=== PATIENT | male | born 1930 | race Caucasian/White ===

== ENCOUNTER 2016-10-23 08:53 | Day surgery (SDC) | payer MEDICARE, BC ==
[~2016-10-23] VITALS: Ht 182.9 cm; Wt 104.5 kg
[2016-10-23] VITALS (426 sets, daily range): BP systolic 134–170; BP diastolic 72–89; PULSE 56–72; TEMP 97.2–98.3; O2SAT 83–98
[~2016-10-23 08:53] MED LIST: ALAVERT10 M1 PO; AMBIEN 5MG TABLE5 MG PO; AVAPRO75 MG PO; CEPHALEXIN500 M1 PO; CIPRO 500MG TA500 MG PO; EFFEXOR 75M75 MG/TAB PO; FISH OIL 1000MG1 CAP PO; FLONASE NASAL S16 GM NS; HCTZ 25MG TAB25 MG PO; MICROZIDE12.5 MG PO; MIRALAX PA17 GM/Dose PO; MULTI VITAMINS1 TAB PO; MULTIVITAMIN FO1 CAP PO; PRIL40 PO; PRILOSEC 20MG20 MG PO; TEARS NATURALE15 M1 OP; TEARS-ARTIFICIA15 ML OU; TYLENOL EXTRA500 M1 PO; VERAPAMIL120 MG/TA1 PO; XALATAN EYE DROPS OU
[2016-10-23] MEDS ORDERED: LOPRESSOR 225 MG/TAB PO (09:18)
[2016-10-23] MEDS ORDERED: LIPITOR 80MG80 MG PO (09:19)
[2016-10-23] MEDS ORDERED: IMDUR 60MG60 MG/TAB PO (09:19)
[2016-10-23] MEDS ORDERED: PLAVIX 75MG TAB75 MG PO (09:20)
[2016-10-23] MEDS ORDERED: ASPIRIN 32325 MG/TAB PO (09:21)
[2016-10-23] MEDS ORDERED: CLARITIN 1010 MG/TAB PO (09:21)
[2016-10-23] MEDS ORDERED: NITROSTAT0.4 MG/TAB SL (09:21)
[2016-10-23] MEDS ORDERED: GLUCOSAMINE & C1 CAP PO (09:22)
[2016-10-23 09:47] LABS: HEMOGLOBIN 12.5 g/dl (13.5-18.0); MEAN CELL VOLUME 94 fl (80.0-100.0); MEAN CORPUSCULAR HEMOGLOBIN 32 pg (27.0-31.0); MEAN CORPUSCULAR HGB CONC 34 g/dl (33.0-37.0); MEAN PLATELET VOLUME 9.5 fl (7.4-10.4); PLATELET COUNT 189 K/mm3 (130-400); RED BLOOD COUNT 3.94 M/mm3 (4.20-5.60); REDCELL DISTRIBUTION WIDTH-CV 12.6 % (11.5-14.5); WHITE BLOOD COUNT 6.4 K/mm3 (4.8-10.8)
[2016-10-23 09:52] LABS: INR 1.2 (0.8-3.0); PROTHROMBIN TIME 13.6 SECONDS (9.7-12.8)
[2016-10-23 10:14] LABS: CALCIUM 9.5 mg/dL (8.4-10.2); CREATININE, serum 1.07 mg/dL (0.66-1.25); POTASSIUM 4.1 mmol/L (3.4-5.0)
[2016-10-24] VITALS (233 sets, daily range): BP systolic 160–161; BP diastolic 87–88; PULSE 62–83; TEMP 97.5–98; O2SAT 89–97
[2016-10-24 05:59] LABS: CREATININE, serum 1.02 mg/dL (0.66-1.25)
[2016-10-24 06:13] LABS: BASO % 0.6 % (0.0-2.0); EOS # 0.2 (0.0-0.7); EOS % 3.5 % (0-4.0); GRAN # 3.9 (1.4-6.5); GRAN % 59.5 % (42.2-75.2); HEMOGLOBIN 12.2 g/dl (13.5-18.0); LYMPH # 1.8 (1.2-3.4); LYMPH % 27.4 % (20.0-51.0); MEAN CELL VOLUME 95 fl (80.0-100.0); MEAN CORPUSCULAR HEMOGLOBIN 32 pg (27.0-31.0); MEAN CORPUSCULAR HGB CONC 34 g/dl (33.0-37.0); MEAN PLATELET VOLUME 9.4 fl (7.4-10.4); MONO # 0.6 (0.1-0.6); MONO % 8.7 % (1.7-9.3); PLATELET COUNT 186 K/mm3 (130-400); RED BLOOD COUNT 3.82 M/mm3 (4.20-5.60); REDCELL DISTRIBUTION WIDTH-CV 12.7 % (11.5-14.5); WHITE BLOOD COUNT 6.6 K/mm3 (4.8-10.8)
[2016-10-24 06:24] LABS: HEMATOCRIT 36.3 % (42.0-52.0)
== END 2016-10-24 10:00 | disposition home or self-care (01) ==
LOC: COL.RAD 08:53 → IMCU 13:07 → COL.RAD 10-24 10:00
PROVIDERS: Internal Medicine Interventional Cardiology
DX: I25.119 Atherosclerotic heart disease of native coronary artery with unspecified angina pectoris (principal); I48.0 Paroxysmal atrial fibrillation; Z79.01 Long term (current) use of anticoagulants; R60.9 Edema, unspecified; I49.3 Ventricular premature depolarization
CPT/HCPCS: OP; C1725; C1760; C1769; C1874; C9600; C9601; J0583; J2250; J3010; Q9967

== ENCOUNTER → 2016-11-06 | Outpatient (CLI) | payer MEDICARE, BC ==
[~2016-11-06] MED LIST changes: +ASPIRIN 32325 MG/TAB PO; +CLARITIN 1010 MG/TAB PO; +GLUCOSAMINE & C1 CAP PO; +IMDUR 60MG60 MG/TAB PO; +LIPITOR 80MG80 MG PO; +LOPRESSOR 225 MG/TAB PO; +NITROSTAT0.4 MG/TAB SL; +PLAVIX 75MG TAB75 MG PO; +TYLENOL W/COD1 UDTAB PO
== END ==
LOC: COL.RAD 10:54
DX: I25.10 Atherosclerotic heart disease of native coronary artery without angina pectoris (principal); Z95.5 Presence of coronary angioplasty implant and graft; I70.0 Atherosclerosis of aorta; K44.9 Diaphragmatic hernia without obstruction or gangrene; N28.1 Cyst of kidney, acquired
CPT/HCPCS: Q9967

== ENCOUNTER 2016-12-02 10:39 | Emergency (ER) | payer MEDICARE, BC ==
[~2016-12-02] VITALS: Ht 182.9 cm; Wt 102.7 kg
[~2016-12-02 10:39] MED LIST changes: -TYLENOL W/COD1 UDTAB PO
[2016-12-02 10:42] VITALS: TEMP 98
[2016-12-02 11:32] VITALS: BP 144/78
[2016-12-02 12:12] LABS: BASO % 0.7 % (0.0-2.0); EOS # 0.2 (0.0-0.7); EOS % 2.8 % (0-4.0); GRAN # 3.6 (1.4-6.5); GRAN % 67.3 % (42.2-75.2); LYMPH # 1.2 (1.2-3.4); LYMPH % 21.7 % (20.0-51.0); MEAN CELL VOLUME 94 fl (80.0-100.0); MEAN CORPUSCULAR HGB CONC 34 g/dl (33.0-37.0); MEAN PLATELET VOLUME 9.4 fl (7.4-10.4); MONO # 0.4 (0.1-0.6); MONO % 7.3 % (1.7-9.3); PLATELET COUNT 181 K/mm3 (130-400); RED BLOOD COUNT 3.74 M/mm3 (4.20-5.60); REDCELL DISTRIBUTION WIDTH-CV 13.2 % (11.5-14.5); WHITE BLOOD COUNT 5.3 K/mm3 (4.8-10.8)
[2016-12-02 12:16] LABS: ADJUSTED CALCIUM 9.3 mg/dL (8.4-10.2); ALBUMIN 3.8 gm/dL (3.5-5.0); BILIRUBIN,TOTAL 0.9 mg/dL (0.0-1.0); CALCIUM 9.1 mg/dL (8.4-10.2); CREATININE, serum 1.04 mg/dL (0.66-1.25); TOTAL PROTEIN 6.3 gm/dL (6.4-8.2)
[2016-12-02 12:17] LABS: HEMATOCRIT 35.2 % (42.0-52.0); HEMOGLOBIN 11.8 g/dl (13.5-18.0); MEAN CORPUSCULAR HEMOGLOBIN 32 pg (27.0-31.0)
[2016-12-02 12:29] LABS: INR 1.2 (0.8-3.0); PROTHROMBIN TIME 13.2 SECONDS (9.7-12.8)
[2016-12-02 12:31] LABS: PARTIAL THROMBOPLASTIN TIME 32.7 SECONDS (26.0-37.0)
[2016-12-02] MEDS ORDERED: TYLENOL W/COD1 UDTAB PO (13:49)
[2016-12-02] MEDS ORDERED: CEPHALEXIN500 M1 PO (13:49)
[2016-12-02 14:30] VITALS: PULSE 60
== END 2016-12-02 14:30 | disposition home or self-care (01) ==
LOC: COL.ER 10:39
PROVIDERS: Emergency Medicine
DX: S61.412A Laceration without foreign body of left hand, initial encounter (principal); W22.03XA Walked into furniture, initial encounter
CPT/HCPCS: J0690; J7030

== ENCOUNTER 2017-02-12 15:36 | Outpatient (RCR) | payer MEDICARE, BC ==
[~2017-02-12 15:36] MED LIST changes: +TYLENOL W/COD1 UDTAB PO
== END 2017-02-21 | disposition home or self-care (01) ==
LOC: COL.CR
DX: Z48.812 Encounter for surgical aftercare following surgery on the circulatory system (principal); Z95.5 Presence of coronary angioplasty implant and graft; I25.10 Atherosclerotic heart disease of native coronary artery without angina pectoris

== ENCOUNTER 2017-03-08 13:25 | Outpatient (RCR) | payer MEDICARE, BC | END 2017-03-17 11:53 | disposition home or self-care (01) | LOC: COL.CR 13:25 | DX: Z48.812 Encounter for surgical aftercare following surgery on the circulatory system (principal); Z95.5 Presence of coronary angioplasty implant and graft; I25.10 Atherosclerotic heart disease of native coronary artery without angina pectoris ==

== ENCOUNTER 2017-10-28 12:10 | Outpatient (CLI) | payer MEDICARE, BC ==
[~2017-10-28] VITALS: Ht 180.3 cm; Wt 101.8 kg
[2017-10-28 12:45] LABS: POTASSIUM 4.8 mmol/L (3.4-5.0)
[2017-10-28 12:48] LABS: INR 1.2 (0.8-3.0); PROTHROMBIN TIME 13.6 SECONDS (9.7-12.8)
[2017-10-28 13:20] LABS: THYROID STIMULATING HORMONE 2.67 uIU/mL (0.465-4.680)
== END 2017-10-28 15:30 | disposition home or self-care (01) ==
LOC: COL.RAD 12:10
PROVIDERS: Internal Medicine Interventional Cardiology
DX: I08.0 Rheumatic disorders of both mitral and aortic valves (principal); I48.0 Paroxysmal atrial fibrillation
CPT/HCPCS: J0330; J2704; J7030

== ENCOUNTER 2017-12-08 17:08 | Emergency (ER) | payer MEDICARE, BC ==
[~2017-12-08] VITALS: Ht 180.3 cm; Wt 104.5 kg
[2017-12-08 17:12] VITALS: TEMP 97.7
[2017-12-08] MEDS ORDERED: BYSTOLIC2.5 MG PO (17:44)
[2017-12-08 17:49] LABS: BASO # 0.1 (0.0-0.2); BASO % 0.7 % (0.0-2.0); EOS # 0.1 (0.0-0.7); EOS % 1.3 % (0-4.0); GRAN # 4.8 (1.4-6.5); GRAN % 67.2 % (42.2-75.2); HEMOGLOBIN 12.1 g/dl (13.5-18.0); LYMPH # 1.5 (1.2-3.4); MEAN CELL VOLUME 95 fl (80.0-100.0); MEAN CORPUSCULAR HEMOGLOBIN 32 pg (27.0-31.0); MEAN CORPUSCULAR HGB CONC 34 g/dl (33.0-37.0); MONO # 0.7 (0.1-0.6); MONO % 9.5 % (1.7-9.3); PLATELET COUNT 168 K/mm3 (130-400); RED BLOOD COUNT 3.78 M/mm3 (4.20-5.60); REDCELL DISTRIBUTION WIDTH-CV 13.1 % (11.5-14.5)
[2017-12-08 17:50] LABS: HEMATOCRIT 35.9 % (42.0-52.0)
[2017-12-08 17:55] LABS: ALBUMIN 3.9 gm/dL (3.5-5.0); BILIRUBIN,TOTAL 0.6 mg/dL (0.0-1.0); CALCIUM 8.9 mg/dL (8.4-10.2); CREATININE, serum 1.21 mg/dL (0.66-1.25); POTASSIUM 4.3 mmol/L (3.4-5.0); TOTAL PROTEIN 6.9 gm/dL (6.4-8.2)
[2017-12-08 18:05] LABS: TROPONIN-I 0.016 ng/mL (0.000-0.034)
[2017-12-08 19:05] VITALS: BP 163/82; PULSE 62
== END 2017-12-08 19:15 | disposition home or self-care (01) ==
LOC: COL.ER 17:08
PROVIDERS: Emergency Medicine
DX: R53.1 Weakness (principal); I48.91 Unspecified atrial fibrillation; I25.10 Atherosclerotic heart disease of native coronary artery without angina pectoris; I10 Essential (primary) hypertension; Z79.02 Long term (current) use of antithrombotics/antiplatelets; Z79.82 Long term (current) use of aspirin; W18.39XA Other fall on same level, initial encounter

== ENCOUNTER 2018-06-03 15:00 | Outpatient (RCR) | payer MEDICARE, BC ==
[~2018-06-03 15:00] MED LIST changes: +BYSTOLIC2.5 MG PO; +DULCOLAX S10 MG/SUPP RC; +GOOD NEIGH1200 MG/15 PO; +NORCO 325 MG-51 TAB PO; +OYSCO 500500 M1 PO; +PROAMATINE2.5 MG PO; +SENOKOT S 50 MG1 TAB PO; +TYLENOL 325MG325 MG PO; +ULTRAM 50MG TAB50 MG PO; +VITAMINC500CH PO
== END 2018-06-03 15:28 | disposition home or self-care (01) ==
LOC: WSPT 15:00
DX: S72.002D Fracture of unspecified part of neck of left femur, subsequent encounter for closed fracture with routine healing (principal); Z96.89 Presence of other specified functional implants
CPT/HCPCS: G8978-GP; G8979-GP

== ENCOUNTER 2018-07-10 17:59 | Emergency (ER) | payer MEDICARE, BC ==
[~2018-07-10] VITALS: Ht 177.8 cm; Wt 95.5 kg
[2018-07-10 18:06] VITALS: TEMP 97
[2018-07-10 18:32] LABS: BASO % 0.4 % (0.0-2.0); EOS # 0.1 (0.0-0.7); EOS % 1.1 % (0-4.0); GRAN % 62.7 % (42.2-75.2); LYMPH % 24.8 % (20.0-51.0); MEAN CELL VOLUME 95 fl (80.0-100.0); MEAN CORPUSCULAR HEMOGLOBIN 31 pg (27.0-31.0); MEAN CORPUSCULAR HGB CONC 33 g/dl (33.0-37.0); MEAN PLATELET VOLUME 8.8 fl (7.4-10.4); MONO # 0.7 (0.1-0.6); MONO % 8.9 % (1.7-9.3); PLATELET COUNT 177 K/mm3 (130-400); RED BLOOD COUNT 3.55 M/mm3 (4.20-5.60); REDCELL DISTRIBUTION WIDTH-CV 14.1 % (11.5-14.5)
[2018-07-10 18:45] LABS: ALBUMIN 3.8 gm/dL (3.5-5.0); BILIRUBIN,TOTAL 0.5 mg/dL (0.0-1.0); CALCIUM 8.8 mg/dL (8.4-10.2); CREATININE, serum 1.19 mg/dL (0.66-1.25); POTASSIUM 4.1 mmol/L (3.4-5.0); TOTAL PROTEIN 6.5 gm/dL (6.4-8.2)
[2018-07-10 18:54] LABS: HEMATOCRIT 33.7 % (42.0-52.0)
[2018-07-10 18:58] LABS: TROPONIN-I 0.024 ng/mL (0.000-0.034)
[2018-07-10] MEDS ORDERED: XALATAN EYE DROPS OU (19:07)
[2018-07-10] MEDS ORDERED: EFFEXOR-XR150 MG PO (19:07)
[2018-07-10 19:21] LABS: INR 1.2 (0.8-3.0); PROTHROMBIN TIME 13.7 SECONDS (9.7-12.8)
[2018-07-10 20:49] VITALS: BP 109/79; PULSE 106
== END 2018-07-10 20:50 | disposition short-term general hospital (02) ==
LOC: COL.ER 17:59
PROVIDERS: Emergency Medicine
DX: S06.5X0A Traumatic subdural hemorrhage without loss of consciousness, initial encounter (principal); I48.91 Unspecified atrial fibrillation; I25.10 Atherosclerotic heart disease of native coronary artery without angina pectoris; I10 Essential (primary) hypertension; F32.9 Major depressive disorder, single episode, unspecified; K21.9 Gastro-esophageal reflux disease without esophagitis; Z79.02 Long term (current) use of antithrombotics/antiplatelets; W10.9XXA Fall (on) (from) unspecified stairs and steps, initial encounter; Y92.009 Unspecified place in unspecified non-institutional (private) residence as the place of occurrence of the external cause
CPT/HCPCS: J2270; J2405; J2550; J7030